=== PATIENT | male | born 1935 | race Hispanic/Latino ===

== ENCOUNTER 2018-10-28 11:07 | Emergency (ER) | payer MEDICARE ==
[2018-10-28 11:47] LABS: Basophils # (Auto) 0.1 K/mm3 (0.0-0.1); Eosinophils # (Auto) 0.3 K/mm3 (0.0-0.4); Eosinophils % (Auto) 3.8 % (0.0-4.3); Hematocrit 33.6 % (35.5-45.6); Hemoglobin 11.5 gm/dl (11.8-15.2); Lymphocytes # (Auto) 1.4 K/mm3 (1.2-5.4); Lymphocytes % (Auto) 19.4 % (13.4-35.0); Mean Corpuscular HGB Conc 34 % (32-34); Mean Corpuscular Volume 90 fl (84-94); Monocytes # (Auto) 0.6 K/mm3 (0.0-0.8); Monocytes % (Auto) 8.3 % (0.0-7.3); Platelet Count 190 K/mm3 (140-440); Red Blood Count 3.72 M/mm3 (3.65-5.03); Red Cell Distribution Width 15.4 % (13.2-15.2)
[2018-10-28 12:17] LABS: Albumin 3.5 g/dL (3.9-5); Calcium 9.1 mg/dL (8.4-10.2)
[2018-10-28 14:12] LABS: Partial Thromboplastin Time 33.1 Sec. (24.2-36.6)
--- NOTE | 2018-10-28 17:03 | Cat Scan Report ---
CT ABDOMEN AND PELVIS WITH CONTRAST INDICATION: abd pain, rectal bleeding, diverticulitis. TECHNIQUE: Axial CT images were obtained through the abdomen and pelvis after 60 cc Omnipaque [address] scans at this location are performed using CT dose reduction for ALARA by means of automated e xposure control. COMPARISON: None available. FINDINGS: LOWER CHEST: Sternotomy, CABG. Calcified right lower lobe granuloma Calcified subcarinal and right pe rihilar granulomas LIVER: No significant abnormality. GALLBLADDER: Absent BILE DUCTS: No significant abnormality. PANCREAS: No significant abnormality. SPLEEN: Multiple calcified splenic granulomas ADRENALS: No significant abnormality. RIGHT KIDNEY and URETER: Multiple right renal cysts, 2 of which are minimally complex with thin calci fications in the [place]. LEFT KIDNEY and URETER: Multiple left renal cysts. Single nonobstructing 5 mm left intrarenal stone. STOMACH and SMALL BOWEL: No significant abnormality. COLON: Ventral midline abdominal wall hernia containing transverse colon without obstruction or incar ceration APPENDIX: No significant abnormality. PERITONEUM: No free fluid. No free air. No fluid collection. LYMPH NODES: No significant adenopathy. AORTA and ARTERIES: Extensive vascular calcifications within nonaneurysmal abdominal aorta and mesent brandy arteries IVC and VEINS: No significant abnormality. URINARY BLADDER: No significant abnormality. REPRODUCTIVE ORGANS: Prostate surgically absent. ADDITIONAL FINDINGS: None. SKELETAL SYSTEM: Moderate degenerative changes both hips and lumbar spine. IMPRESSION: 1. Ventral abdominal wall hernia containing transverse colon without obstruction or incarceration. 2. Left nephrolithiasis. No ureteral stone or hydronephrosis. 3. Multiple bilateral renal cysts. 4. Moderate constipation. 5. Previous prostatectomy without CT evidence for intra-abdominal, pelvic or skeletal metastases Signer Name: Deandre Parkinson MD Signed: 10/28/2018 4:59 PM Workstation Name: [id number]
[2018-10-28] MEDS ORDERED: NACL 0.9% 1000 ML 1,000 ML IV ONE (17:08)
--- NOTE | 2018-10-28 17:37 | Emergency Department Report ---
ED Abdominal Pain HPI - General Chief Complaint: GI Bleed Stated Complaint: RECTAL BLEEDING Time Seen by Provider: 10/28/18 11:31 Source: EMS Mode of arrival: Stretcher Limitations: Other - History of Present Illness Initial Comments: 82-year-old male who is on hospice, presents to ED after having one episode of bloody stool. Denies any abdominal pain, nausea, fever, chills or night sweats. Family wanted patient to come to ED to get checked out. Stated this is a first time this had happened, prostate cancer, history of CVAs, on hospice for maida ia and cerebrovascular disease. He is not on blood thinners, takes an aspirin. Severity scale (0 -10): 0 - Related Data Home Medications Medication Instructions Recorded Confirmed Last Taken Triamcinolone 0.1% [Kenalog 0.1% 1 applic TP TID 08/19/18 10/28/18 10/25/18 CREAM] traMADol [Ultram 50 MG tab] 50 mg PO Q6HR PRN 08/19/18 10/28/18 10/28/18 Previous Rx's Medication Instructions Recorded Last Taken Type Aspirin 325 mg PO QDAY #30 tablet 08/21/18 10/27/18 Rx AtorvaSTATin [Lipitor] 40 mg PO QHS #30 tablet 08/21/18 10/28/18 Rx Allergies Allergy/AdvReac Type Severity Reaction Status Date / Time Penicillins Allergy Unknown Verified 08/19/18 09:45 ED Review of Systems ROS: Stated complaint: RECTAL BLEEDING Other details as noted in HPI Comment: All other systems reviewed and negative Cardiovascular: denies: chest pain Gastrointestinal: hematochezia Skin: denies: rash Neurological: denies: headache Psychiatric: denies: anxiety, depression ED Past Medical Hx - Past Medical History Previous Medical History?: Yes Hx Hypertension: Yes Hx CVA: Yes (CVA 2, left-sided weakness) Hx Dementia: Yes Additional medical history: Coronary artery disease - Surgical History Past Surgical History?: Yes Additional Surgical History: open heart, prostate cancer, gallbladder - Social History Smoking Status: Never Smoker Substance Use Type: None - Medications Home Medications: Home Medications Medication Instructions Recorded Confirmed Last Taken Type Triamcinolone 0.1% [Kenalog 0.1% 1 applic TP TID 08/19/18 10/28/18 10/25/18 History CREAM] traMADol [Ultram 50 MG tab] 50 mg PO Q6HR PRN 08/19/18 10/28/18 10/28/18 History Aspirin 325 mg PO QDAY #30 tablet 08/21/18 10/28/18 10/27/18 Rx AtorvaSTATin [Lipitor] 40 mg PO QHS #30 tablet 08/21/18 10/28/18 10/28/18 Rx ED Physical Exam - General Limitations: Other General appearance: alert, in no apparent distress - Head Head exam: Present: atraumatic, normocephalic - Eye Eye exam: Present: normal appearance Pupils: Present: normal accommodation - ENT ENT exam: Present: normal exam, normal orophraynx - Neck Neck exam: Present: normal inspection - Respiratory Respiratory exam: Present: normal lung sounds bilaterally - Cardiovascular Cardiovascular Exam: Present: regular rate, normal rhythm - GI/Abdominal GI/Abdominal exam: Present: soft, normal bowel sounds - Rectal Rectal exam: Present: normal inspection, heme (+) stool, hemorrhoids ED Course Vital Signs 10/28/18 10/28/18 10/28/18 11:29 11:30 11:32 Temperature 97.8 F Pulse Rate 65 63 62 Respiratory 13 11 L 14 Rate Blood Pressure 94/52 94/52 Blood Pressure 94/52 [Left] O2 Sat by Pulse 98 98 98 Oximetry 10/28/18 10/28/18 10/28/18 11:40 12:00 12:30 Temperature Pulse Rate 59 L 57 L Respiratory 10 L 12 Rate Blood Pressure 109/56 115/59 Blood Pressure [Left] O2 Sat by Pulse 98 98 98 Oximetry 10/28/18 10/28/18 10/28/18 13:00 13:31 14:01 Temperature Pulse Rate 65 66 67 Respiratory 12 16 14 Rate Blood Pressure 111/63 108/54 104/44 Blood Pressure [Left] O2 Sat by Pulse 97 96 98 Oximetry 10/28/18 10/28/18 10/28/18 14:30 15:30 16:00 Temperature Pulse Rate 60 63 62 Respiratory 12 7 L 11 L Rate Blood Pressure 96/51 95/46 92/54 Blood Pressure [Left] O2 Sat by Pulse 95 95 95 Oximetry 10/28/18 10/28/18 10/28/18 16:45 17:00 17:31 Temperature Pulse Rate 64 68 Respiratory 13 14 Rate Blood Pressure 92/54 85/52 123/68 Blood Pressure [Left] O2 Sat by Pulse 98 96 97 Oximetry 10/28/18 18:00 Temperature Pulse Rate 64 Respiratory 15 Rate Blood Pressure 128/72 Blood Pressure [Left] O2 Sat by Pulse 95 Oximetry ED Medical Decision Making - Lab Data Result diagrams: 10/28/18 11:36 10/28/18 11:36 - Medical Decision Making patient on hospice, h/h at baseline, no new episodes or bloody stool. wants to go home, daughter at bedside, states she will f/u with hospice nurse. - Differential Diagnosis int hemorrhoids,ext hemorrhoids,diverticular bleed,angiodysplesia, Critical care attestation.: If time is entered above; I have spent that time in minutes in the direct care of this critically ill patient, excluding procedure time. ED Disposition Clinical Impression: Rectal bleeding Disposition: DC-01 TO HOME OR SELFCARE Is pt being admited?: No Does the pt Need Aspirin: No Condition: Stable Instructions: Rectal Bleeding (ED) Referrals: ELDON RINALDI MD [Primary Care Provider] - 3-5 Days Forms: Accompanied Note
[2018-10-28 18:29] VITALS: BP 128/72
== END 2018-10-28 18:52 | disposition home or self-care (01) ==
LOC: ED 11:07
DX: K62.5 Hemorrhage of anus and rectum (principal); I10 Essential (primary) hypertension; F03.90 Unspecified dementia, unspecified severity, without behavioral disturbance, psychotic disturbance, mood disturbance, and anxiety; I25.10 Atherosclerotic heart disease of native coronary artery without angina pectoris; Z86.73 Personal history of transient ischemic attack (TIA), and cerebral infarction without residual deficits; Z88.0 Allergy status to penicillin
CPT/HCPCS: 36415; 74177; 80053; 82271; 85025; 85610; 85730; 99284; Q9966